=== PATIENT | male | born 1955 | race Caucasian/White ===

== ENCOUNTER 2019-04-26 10:10 | Inpatient (IN) | payer OTHER ==
[2019-04-26] MEDS ORDERED: SODIUM CHLORIDE 0.9% 1,000 ML IV STA (10:18)
[2019-04-26] MEDS ORDERED: FAMOTIDINE 20 MG/2 ML VIAL IV STA (10:18)
[2019-04-26 10:34] LABS: Basophils % (A) 1 %; Eosinophils # (A) 0.1 k/uL (0-0.7); Eosinophils % (A) 2 %; HCT 45.7 % (39.0-53.0); HGB 14.5 gm/dL (13.0-17.5); Lymphocytes # (A) 1.2 k/uL (1.0-4.8); Lymphocytes % (A) 19 %; MCH 30.8 pg (25.0-35.0); MCHC 31.7 g/dL (31.0-37.0); MCV 97.2 fL (80.0-100.0); Mean Platelet Volume 7.4; Monocytes # (A) 0.3 k/uL (0-1.0); Monocytes % (A) 5 %; Neutrophils # (A) 4.9 k/uL (1.3-7.7); Neutrophils % (A) 73 %; Platelet Count 233 k/uL (150-450); RDW 13.3 % (11.5-15.5); WBC 6.7 k/uL (3.8-10.6)
[2019-04-26 10:45] LABS: ALT 20 U/L (4-49); AST 31 U/L (17-59); African American GFR (CKD) >90 (>60 ml/min/1.73 sqM); Albumin 3.1 g/dL (3.5-5.0); Alkaline Phosphatase 52 U/L (38-126); Anion Gap 3 mmol/L; Blood Urea Nitrogen 14 mg/dL (9-20); Calcium 7.8 mg/dL (8.4-10.2); Carbon Dioxide 28 mmol/L (22-30); Chloride 104 mmol/L (98-107); Glucose 117 mg/dL (74-99); Magnesium 1.9 mg/dL (1.6-2.3); Non-African American GFR(CKD) >90 (>60 ml/min/1.73 sqM); Potassium 4.2 mmol/L (3.5-5.1); Sodium 135 mmol/L (137-145); Total Bilirubin 1.1 mg/dL (0.2-1.3); Total Protein 5.8 g/dL (6.3-8.2)
--- NOTE | 2019-04-26 10:46 | ED ---
General Adult HPI - General Chief complaint: Shortness of Breath Stated complaint: shortness of breath Time Seen by Provider: 04/26/19 10:12 Source: patient, RN notes reviewed Mode of arrival: EMS Limitations: no limitations - History of Present Illness Initial comments: Patient is a pleasant 63-year-old male presenting to the emergency Department with complaints of difficulty in breathing. Symptoms have progressed over the past year and a half, especially this past week. Patient stopped smoking yesterday. Patient used to smoke 3 packs a day however currently smokes less than one pack per day. No significant cough. No leg pain or leg swelling. No chest pain. Patient does get occasional epigastric discomfort over the past several weeks, none at this time. - Related Data Home Medications Medication Instructions Recorded Confirmed Albuterol Inhaler [Ventolin Hfa 2 puff INHALATION RT-Q4H 04/26/19 04/26/19 Inhaler] Buprenorphine HCl [Subutex] 8 mg SL BID 04/26/19 04/26/19 Caffeine Tablets 200 mg PO Q4H 04/26/19 04/26/19 Fluticasone/Vilanterol [Breo 1 puff INHALATION RT-DAILY 04/26/19 04/26/19 Ellipta 200-25 Mcg INH] Pseudoephedrine HCl [Sudafed] 30 mg PO Q4HR PRN 04/26/19 04/26/19 Allergies Allergy/AdvReac Type Severity Reaction Status Date / Time No Known Allergies Allergy Verified 04/26/19 11:14 Review of Systems ROS Statement: Those systems with pertinent positive or pertinent negative responses have been documented in the HPI. ROS Other: All systems not noted in ROS Statement are negative. Constitutional: Denies: fever Eyes: Denies: eye pain ENT: Denies: ear pain Respiratory: Reports: dyspnea. Denies: cough Cardiovascular: Denies: chest pain Endocrine: Reports: fatigue Gastrointestinal: Reports: as per HPI Genitourinary: Denies: dysuria Musculoskeletal: Denies: arthralgia Skin: Denies: lesions Neurological: Denies: weakness Past Medical History Past Medical History: COPD History of Any Multi-Drug Resistant Organisms: None Reported Past Surgical History: No Surgical Hx Reported Additional Past Surgical History / Comment(s): surgery on arm to remove lump build up of ecoli approx 1994. Past Psychological History: Depression Smoking Status: Current every day smoker Past Alcohol Use History: Daily Past Drug Use History: None Reported General Exam Limitations: no limitations General appearance: alert, in no apparent distress Head exam: Present: normocephalic Eye exam: Present: normal appearance, PERRL ENT exam: Present: normal oropharynx Neck exam: Present: normal inspection Respiratory exam: Present: wheezes, decreased breath sounds Cardiovascular Exam: Present: regular rate, normal rhythm GI/Abdominal exam: Present: soft. Absent: tenderness Extremities exam: Present: normal inspection Neurological exam: Present: alert Psychiatric exam: Present: normal affect, normal mood Skin exam: Present: normal color Course Vital Signs 04/26/19 10:27 Pulse Rate 84 Respiratory 24 Rate Blood Pressure 182/111 O2 Sat by Pulse 97 Oximetry EKG Findings - EKG Comments: EKG Findings:: Normal sinus rhythm 86. IA 116. QRS 90. QT 384. QTC 459. Left axis. Left anterior fascicular block. No acute ST change. Medical Decision Making - Medical Decision Making Patient reevaluated and somewhat improved. Blood pressure remains high. Patient will be provided medication for this. Patient and family updated on results and plan. Case was discussed in detail with Dr. Arreola, who will admit covering for hospital call. He does request pulmonary consult with Dr. Morales - Lab Data Result diagrams: 04/26/19 10:23 04/26/19 10:23 Lab Results 04/26/19 04/26/19 04/26/19 Range/Units 10:23 10:23 10:23 WBC 6.7 (3.8-10.6) k/uL RBC 4.70 (4.30-5.90) m/uL Hgb 14.5 (13.0-17.5) gm/dL Hct 45.7 (39.0-53.0) % MCV 97.2 (80.0-100.0) fL MCH 30.8 (25.0-35.0) pg MCHC 31.7 (31.0-37.0) g/dL RDW 13.3 (11.5-15.5) % Plt Count 233 (150-450) k/uL Neutrophils % 73 % Lymphocytes % 19 % Monocytes % 5 % Eosinophils % 2 % Basophils % 1 % Neutrophils # 4.9 (1.3-7.7) k/uL Lymphocytes # 1.2 (1.0-4.8) k/uL Monocytes # 0.3 (0-1.0) k/uL Eosinophils # 0.1 (0-0.7) k/uL Basophils # 0.0 (0-0.2) k/uL PT (9.0-12.0) sec INR (<1.2) APTT (22.0-30.0) sec Sodium 135 L (137-145) mmol/L Potassium 4.2 (3.5-5.1) mmol/L Chloride 104 (98-107) mmol/L Carbon Dioxide 28 (22-30) mmol/L Anion Gap 3 mmol/L BUN 14 (9-20) mg/dL Creatinine 0.51 L (0.66-1.25) mg/dL Est GFR (CKD-EPI)AfAm >90 (>60 ml/min/1.73 sqM) Est GFR (CKD-EPI)NonAf >90 (>60 ml/min/1.73 sqM) Glucose 117 H (74-99) mg/dL Plasma Lactic Acid Suraj 1.1 (0.7-2.0) mmol/L Calcium 7.8 L (8.4-10.2) mg/dL Magnesium 1.9 (1.6-2.3) mg/dL Total Bilirubin 1.1 (0.2-1.3) mg/dL AST 31 (17-59) U/L ALT 20 (4-49) U/L Alkaline Phosphatase 52 (38-126) U/L NT-Pro-B Natriuret Pep pg/mL Total Protein 5.8 L (6.3-8.2) g/dL Albumin 3.1 L (3.5-5.0) g/dL 04/26/19 04/26/19 Range/Units 10:23 10:23 WBC (3.8-10.6) k/uL RBC (4.30-5.90) m/uL Hgb (13.0-17.5) gm/dL Hct (39.0-53.0) % MCV (80.0-100.0) fL MCH (25.0-35.0) pg MCHC (31.0-37.0) g/dL RDW (11.5-15.5) % Plt Count (150-450) k/uL Neutrophils % % Lymphocytes % % Monocytes % % Eosinophils % % Basophils % % Neutrophils # (1.3-7.7) k/uL Lymphocytes # (1.0-4.8) k/uL Monocytes # (0-1.0) k/uL Eosinophils # (0-0.7) k/uL Basophils # (0-0.2) k/uL PT 10.7 (9.0-12.0) sec INR 1.0 (<1.2) APTT 23.8 (22.0-30.0) sec Sodium (137-145) mmol/L Potassium (3.5-5.1) mmol/L Chloride (98-107) mmol/L Carbon Dioxide (22-30) mmol/L Anion Gap mmol/L BUN (9-20) mg/dL Creatinine (0.66-1.25) mg/dL Est GFR (CKD-EPI)AfAm (>60 ml/min/1.73 sqM) Est GFR (CKD-EPI)NonAf (>60 ml/min/1.73 sqM) Glucose (74-99) mg/dL Plasma Lactic Acid Suraj (0.7-2.0) mmol/L Calcium (8.4-10.2) mg/dL Magnesium (1.6-2.3) mg/dL Total Bilirubin (0.2-1.3) mg/dL AST (17-59) U/L ALT (4-49) U/L Alkaline Phosphatase (38-126) U/L NT-Pro-B Natriuret Pep 292 pg/mL Total Protein (6.3-8.2) g/dL Albumin (3.5-5.0) g/dL - Radiology Data Radiology results: image reviewed (Chest x-ray shows COPD) Disposition Clinical Impression: Acute exacerbation of chronic obstructive pulmonary disease, Hypertension Disposition: ADMITTED IP TO THIS HOSP Is patient prescribed a controlled substance at d/c from ED?: No Referrals: None,Stated [Primary Care Provider] - 1-2 days Decision Time: 11:45
[2019-04-26 10:50] LABS: Partial Thromboplastin Time 23.8 sec (22.0-30.0); Prothrombin Time 10.7 sec (9.0-12.0)
--- NOTE | 2019-04-26 11:02 | XR ---
EXAMINATION TYPE: XR chest 2V DATE OF EXAM: 04/26/2019 HISTORY: difficulty breathing. REFERENCE: NONE. FINDINGS: The lungs are overinflated. Heart size upper limits of normal. Lungs are clear. Pleural spa sofiya are clear. IMPRESSION: COPD.
--- NOTE | 2019-04-26 11:02 | XR ---
EXAMINATION TYPE: XR abdomen 1V , 2 VIEWS DATE OF EXAM ORDERED: 04/26/2019 HISTORY: Abdominal pain. COMPARISON: None. FINDINGS: Catheter tubing projects over the mid abdomen. Lung bases are clear. Within the abdomen, the abdominal gas pattern is within normal limits. There is no evidence of obstru ction or free air. No unusual calcifications are seen. There are degenerative changes in the spine. IMPRESSION: NO ACUTE INTRA-ABDOMINAL ABNORMALITY.
[2019-04-26] MEDS ORDERED: ENALAPRILAT 1.25 MG/ML 1 ML VIAL IVP STA (11:32)
[2019-04-26] MEDS ORDERED: ENALAPRILAT 1.25 MG/ML 1 ML VIAL IVP PRN (11:32)
[2019-04-26] MEDS ORDERED: methylPREDNISolone SOD SUCCI 125 MG/2 ML VIAL IV STA (11:46)
[2019-04-26] MEDS ORDERED: IPRATROPIUM-ALBUTEROL 3 ML NEB INHALATION PRN (11:46)
[2019-04-26] MEDS ORDERED: ONDANSETRON 4 MG/2 ML VIAL IVP STA (12:07)
[2019-04-26 12:10] LABS: Amylase 39 U/L (30-110)
[2019-04-26] MEDS: IPRATROPIUM-ALBUTEROL 3 ML NEB INHALATION SCH ×3 (12:10→19:39)
[2019-04-26] MEDS: SODIUM CHLORIDE 0.9% 1,000 ML IV SCH (12:11)
[2019-04-26] MEDS: amLODIPine 5 MG TAB PO SCH (12:14)
[2019-04-26] MEDS ORDERED: PSEUDOEPHEDRINE 30 MG TAB PO PRN (12:48)
--- NOTE | 2019-04-26 12:59 | US ---
EXAMINATION TYPE: US abdomen limited DATE OF EXAM: 04/26/2019 COMPARISON: NONE CLINICAL HISTORY: Pain, evaluate aorta and gallbladder. SOB, intermittent abdomen pain x 1 week EXAM MEASUREMENTS: Liver Length: 15.4 cm Gallbladder Wall: 0.2 cm CBD: 0.5 cm Right Kidney: 10.1 x 4.3 x 4.6 cm Pancreas: duct seen measuring 0.3cm Liver: wnl Gallbladder: wnl Evidence for sonographic Bowen's sign: no CBD: wnl Right Kidney: wnl Limited views of the pancreas are unremarkable. The liver is unremarkable. It is normal in size without biliary dilatation. The gallbladder is normal without cholelithiasis. The gallbladder wall measures 2 mm. This common hep atic duct measures 5 mm. The right kidney is normal. IMPRESSION: NORMAL RIGHT UPPER QUADRANT ULTRASOUND.
--- NOTE | 2019-04-26 13:00 | US ---
EXAMINATION TYPE: US duplex aorta DATE OF EXAM: 04/26/2019 COMPARISON: NONE CLINICAL HISTORY: pain. SOB, intermittent abdomen pain x 1 week EXAM MEASUREMENTS: Abdominal Aorta: Proximal: wnl at 2.2 x 2.4cm Mid: wnl at 1.7 x 1.9cm Distal: wnl at 1.9 x 2.0cm Right Iliac: wnl at 1.0 x 1.0cm Left Iliac: wnl at 1.0 x 1.2cm No AAA seen at this time. IMPRESSION: NO EVIDENCE OF AN AORTIC ANEURYSM AT THIS TIME.
[2019-04-26] MEDS: BUPRENORPHINE HCL 8 MG SUBLINGUAL SCH ×2 (14:32→22:33)
[2019-04-26] MEDS: LISINOPRIL 20 MG TAB PO SCH (14:44)
[2019-04-26 16:55] LABS: Glucose,Whole Blood 327 mg/dL (75-99)
[2019-04-26] MEDS: INSULIN ASPART (NovoLOG) 100 UNIT/ML VIAL SQ SCH ×2 (17:33→22:29)
[2019-04-26] MEDS: methylPREDNISolone SOD SUCCI 125 MG/2 ML VIAL IV SCH (17:33)
[2019-04-26] MEDS ORDERED: LORazepam 2 MG/ML INJ IV PRN ×3 (17:50)
[2019-04-26] MEDS: NICOTINE 21MG/24HR PATCH TRANSDERM SCH (18:30)
[2019-04-26] MEDS: THIAMINE 100 MG TAB PO SCH (18:30)
[2019-04-26 21:05] LABS: Glucose,Whole Blood 159 mg/dL (75-99)
[2019-04-26] MEDS: FAMOTIDINE 20 MG TAB PO SCH (22:29)
[2019-04-27] MEDS: SODIUM CHLORIDE 0.9% 1,000 ML IV SCH ×4 (00:47→20:27)
[2019-04-27] MEDS: methylPREDNISolone SOD SUCCI 125 MG/2 ML VIAL IV SCH ×5 (00:47→23:28)
--- NOTE | 2019-04-27 01:14 | P.CNPUL ---
History of Present Illness Consult date: 04/26/19 Reason for consult: dyspnea, cough Chief complaint: Shortness of breath History of present illness: This is a 63-year-old with past medical history of significant history of smoking smokes about 3 packs per day came into the hospital with increasing shortness of breath intermittent cough congestion not feeling well, chest x-ray looks like COPD Review of Systems All systems: negative Past Medical History Past Medical History: COPD History of Any Multi-Drug Resistant Organisms: None Reported Past Surgical History: No Surgical Hx Reported Additional Past Surgical History / Comment(s): surgery on arm to remove lump build up of ecoli approx 1994. 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 continues with suboxone. - Past Family History Father History Unknown: Yes Mother History Unknown: Yes Medications and Allergies Home Medications Medication Instructions Recorded Confirmed Type Albuterol Inhaler [Ventolin Hfa 2 puff INHALATION RT-Q4H 04/26/19 04/26/19 History Inhaler] Buprenorphine HCl [Subutex] 8 mg SL BID 04/26/19 04/26/19 History Caffeine Tablets 200 mg PO Q4H 04/26/19 04/26/19 History Fluticasone/Vilanterol [Breo 1 puff INHALATION RT-DAILY 04/26/19 04/26/19 History Ellipta 200-25 Mcg INH] Pseudoephedrine HCl [Sudafed] 30 mg PO Q4HR PRN 04/26/19 04/26/19 History Allergies Allergy/AdvReac Type Severity Reaction Status Date / Time No Known Allergies Allergy Verified 04/26/19 11:14 Physical Exam Vitals: Vital Signs Temp Pulse Pulse Resp BP BP Pulse Ox 04/26/19 19:50 92 04/26/19 19:40 95 97 04/26/19 16:20 88 04/26/19 16:09 84 04/26/19 14:06 97.5 F L 88 150/95 93 L 04/26/19 13:19 77 20 155/98 99 04/26/19 13:13 20 04/26/19 13:03 98.4 F 04/26/19 12:54 78 20 159/112 98 04/26/19 12:21 87 04/26/19 12:13 82 04/26/19 12:11 76 20 168/112 100 04/26/19 11:54 77 20 185/115 99 04/26/19 10:27 84 24 182/111 97 Intake and Output 04/26/19 04/26/19 04/27/19 14:59 22:59 06:59 Intake Total 240 Balance 240 Intake: Oral 240 Other: Weight 44.906 kg - Constitutional General appearance: average body habitus, cooperative, disheveled, morbidly obese - EENT Eyes: EOMI, PERRLA, normal appearance ENT: normal oropharynx Ears: bilateral: normal - Neck Carotids: bilateral: upstroke normal Thyroid: bilateral: normal size - Respiratory Respiratory: bilateral: diminished, wheezing, negative: dullness, rales, rhonchi - Cardiovascular Rhythm: regular Heart sounds: normal: S1, S2 - Gastrointestinal General gastrointestinal: soft - Integumentary Integumentary: normal - Neurologic Neurologic: CNII-XII intact - Musculoskeletal Musculoskeletal: gait normal, generalized weakness, strength equal bilaterally - Psychiatric Psychiatric: A&O x's 3, appropriate affect, intact judgment & insight Results - Laboratory Findings CBC and BMP: 04/26/19 10:23 04/26/19 10:23 PT/INR, D-dimer PT 10.7 sec (9.0-12.0) 04/26/19 10:23 INR 1.0 (<1.2) 04/26/19 10:23 Abnormal lab findings: Abnormal Labs 04/26/19 04/26/19 04/26/19 10:23 16:52 21:00 Sodium 135 L Creatinine 0.51 L Glucose 117 H POC Glucose (mg/dL) 327 H 159 H Calcium 7.8 L Total Protein 5.8 L Albumin 3.1 L - Diagnostic Findings Chest x-ray: report reviewed, image reviewed (Finding as noted above) Assessment and Plan Assessment: Acute COPD exacerbation History of extensive smoking and nicotine use Plan: Continue IV steroids Breathing treatments Smoking cessation and advice Further recommendations pending plan of care as per clinical response of the patient Time with Patient: Greater than 30
[2019-04-27] MEDS: ACETAMINOPHEN TAB 325 MG TAB PO PRN ×2 (02:02→20:27)
[2019-04-27 07:13] LABS: Glucose,Whole Blood 167 mg/dL (75-99)
[2019-04-27] MEDS: SYMBICORT 160-4.5 MCG INHALER INHALATION SCH ×2 (07:16→19:39)
[2019-04-27] MEDS: IPRATROPIUM-ALBUTEROL 3 ML NEB INHALATION SCH ×4 (07:16→19:39)
[2019-04-27] MEDS: BUPRENORPHINE HCL 8 MG SUBLINGUAL SCH ×2 (08:01→20:12)
[2019-04-27] MEDS: NICOTINE 21MG/24HR PATCH TRANSDERM SCH (08:03)
[2019-04-27] MEDS: INSULIN ASPART (NovoLOG) 100 UNIT/ML VIAL SQ SCH ×4 (08:03→20:09)
[2019-04-27] MEDS: THIAMINE 100 MG TAB PO SCH ×2 (08:03→17:36)
[2019-04-27] MEDS: LISINOPRIL 20 MG TAB PO SCH (08:03)
[2019-04-27] MEDS: FAMOTIDINE 20 MG TAB PO SCH ×2 (08:03→20:27)
[2019-04-27] MEDS: amLODIPine 5 MG TAB PO SCH (08:03)
[2019-04-27 11:55] LABS: Cholesterol 172 mg/dL (<200); HDL Cholesterol 86 mg/dL (40-60); LDL Cholesterol,Calculated 73 mg/dL (0-99); Triglycerides 67 mg/dL (<150)
[2019-04-27 11:55] LABS: Glucose,Whole Blood 168 mg/dL (75-99)
--- NOTE | 2019-04-27 13:05 | HP ---
HISTORY AND PHYSICAL CHIEF COMPLAINT: Difficulty breathing. HISTORY OF PRESENT ILLNESS: This is the first known admission for this 63-year-old white male who presents to the emergency room with extreme shortness of breath. It has been getting worse over the last year. He smokes 3 to 4 packs a day and stated that he stopped yesterday. He has had no cough, hemoptysis, chest pain, etc. He has otherwise been healthy. At home, uses albuterol, fluticasone, buprenorphine 8 mg b.i.d. REVIEW OF SYSTEMS: He has had no headaches, neurologic problems, hemoptysis, chest pain, heart disease, hypertension, palpitations, murmurs, rheumatic fever, syncope, orthopnea, PND, hematemesis, melena, hematochezia, jaundice, renal failure, dysuria, frequency, urgency, incontinence, diabetes, etc. Past medical history, family history and personal and social histories reveal he is not allergic to any medication. PHYSICAL EXAMINATION: Blood pressure is 182/111 with a pulse of 84, respiration 24. He is afebrile. GENERAL: He appeared to be very asthenic and very short of breath. Skin color is normal. Skin is warm, dry. Lymph nodes not enlarged. Head, ears, eyes, nose, mouth, and throat were normal. Neck veins were not distended. Carotids normal. Chest demonstrated increased AP diameter with very poor breath sounds and extensive rales and wheezing on inspiration and expiration and occasional rhonchi along with a productive cough. Cardiac exam demonstrates sinus tachycardia. The abdomen is flat, soft, nontender without any visceromegaly or masses. Bowel sounds are present. Extremities were found to be very cool and he had no palpable pulses in the lower extremities. Neurologically, he is intact. He is admitted to hospital with diagnoses. 1. Exacerbation of chronic obstructive pulmonary disease. 2. History of abdominal pain, etiology unknown. 3. Peripheral vascular occlusive disease. PLAN: 1. Bed rest. 2. IV fluids. 3. Updrafts. 4. IV inhaled steroids. 5. Pulmonology consult. 6. Vascular Surgery consult. SARATH / ROMAINE: [id number] /
[2019-04-27 14:28] VITALS: BMI 15.0
--- NOTE | 2019-04-27 16:42 | P.GSCN ---
History of Present Illness Consult date: 04/27/19 Reason for Consult: Peripheral vascular disease Requesting physician: Gerard Arreola History of present illness: This is 63-year-old gentleman who does not follow with a primary care physician on a regular basis. He is a past medical history significant for COPD, depression, chronic ongoing tobacco dependence and EtOH abuse. Recently, over the past 2-3 days the patient has been having complaints of progressive shortness of breath which has been getting worse over the past year. He also complaints of progressive weakness over the last week. The patient states that he smokes about a pack to a pack and a half of cigarettes per day although has not smoked at all over the weekend prior to presenting to the emergency department here at [facility]. He also reports that he has been getting frequent charley horses to his bilateral lower extremities. He denies any recent fever, chills, hemoptysis, cough, or chest pain. Subsequently, due to the patient's complaints of frequent charley horses a consult was placed to Dr. Oskar Hedrick from vascular surgery for further evaluation and treatment recommendations. Review of Systems A 14 point review of systems was completed and was negative except as mentioned in the HPI. Past Medical History Past Medical History: COPD History of Any Multi-Drug Resistant Organisms: None Reported Past Surgical History: No Surgical Hx Reported Additional Past Surgical History / Comment(s): surgery on arm to remove lump build up of ecoli approx 1994. 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 He admits to using unprescribed Adderall at times. continues with suboxone. - Past Family History Father Family Medical History: Myocardial Infarction ([place]) Mother Additional Family Medical History / Comment(s): History of permanent pacemaker placement, " of old age at 96 years old." Medications and Allergies Home Medications Medication Instructions Recorded Confirmed Type Albuterol Inhaler [Ventolin Hfa 2 puff INHALATION RT-Q4H 04/26/19 04/26/19 Hi story Inhaler] Buprenorphine HCl [Subutex] 8 mg SL BID 04/26/19 04/26/19 History Caffeine Tablets 200 mg PO Q4H 04/26/19 04/26/19 History Fluticasone/Vilanterol [Breo 1 puff INHALATION RT-DAILY 04/26/19 04/26/19 History Ellipta 200-25 Mcg INH] Pseudoephedrine HCl [Sudafed] 30 mg PO Q4HR PRN 04/26/19 04/26/19 History Allergies Allergy/AdvReac Type Severity Reaction Status Date / Time No Known Allergies Allergy Verified 04/26/19 11:14 Surgical - Exam Vital Signs Pulse Resp BP Pulse Ox 84 24 182/111 97 04/26/19 10:27 04/26/19 10:27 04/26/19 10:27 04/26/19 10:27 - General no distress, no pain, cachectic, chronically ill - Eyes PERRL, normal ocular movement - ENT normal pinna, normal nares, normal mucosa, no hearing loss, no congestion, poor snf, dentures (Partials upper and lower) - Respiratory Lung sounds with few expiratory wheezes scattered throughout. Diminished to his bilateral bases. Respirations are symmetrical and nonlabored. - Cardiovascular Regular rhythm and rate. S1 and S2 present, negative for S3, gallop or murmur. Peripheral pulses palpable. No edema present. - Abdomen Abdomen is soft, nontender and nondistended. Active bowel sounds present all 4 abdominal quadrants. No guarding or rigidity. No organomegaly appreciated. - Genitourinary Deferred - Rectum Deferred - Integumentary no rash, no growths, no abnormal pigmentation - Neurologic Cranial nerves II through XII intact. normal coordination, normal sensation - Musculoskeletal normal gait, normal posture - Psychiatric oriented to time, oriented to person, oriented to place, speech is normal, memory intact Results - Labs 04/26/19 10:23 04/26/19 10:23 Abnormal Lab Results - Last 24 Hours (Table) 04/26/19 04/26/19 04/26/19 Range/Units 10:23 16:52 21:00 Sodium 135 L (137-145) mmol/L Creatinine 0.51 L (0.66-1.25) mg/dL Glucose 117 H (74-99) mg/dL POC Glucose (mg/dL) 327 H 159 H (75-99) mg/dL Calcium 7.8 L (8.4-10.2) mg/dL Total Protein 5.8 L (6.3-8.2) g/dL Albumin 3.1 L (3.5-5.0) g/dL HDL Cholesterol 86 H (40-60) mg/dL 04/27/19 04/27/19 Range/Units 06:46 11:35 Sodium (137-145) mmol/L Creatinine (0.66-1.25) mg/dL Glucose (74-99) mg/dL POC Glucose (mg/dL) 167 H 168 H (75-99) mg/dL Calcium (8.4-10.2) mg/dL Total Protein (6.3-8.2) g/dL Albumin (3.5-5.0) g/dL HDL Cholesterol (40-60) mg/dL Diabetes panel 04/26/19 Range/Units 10:23 Sodium 135 L (137-145) mmol/L Potassium 4.2 (3.5-5.1) mmol/L Chloride 104 (98-107) mmol/L Carbon Dioxide 28 (22-30) mmol/L BUN 14 (9-20) mg/dL Creatinine 0.51 L (0.66-1.25) mg/dL Glucose 117 H (74-99) mg/dL Calcium 7.8 L (8.4-10.2) mg/dL AST 31 (17-59) U/L ALT 20 (4-49) U/L Alkaline Phosphatase 52 (38-126) U/L Total Protein 5.8 L (6.3-8.2) g/dL Albumin 3.1 L (3.5-5.0) g/dL Triglycerides 67 (<150) mg/dL HDL Cholesterol 86 H (40-60) mg/dL Calcium panel 04/26/19 Range/Units 10:23 Calcium 7.8 L (8.4-10.2) mg/dL Albumin 3.1 L (3.5-5.0) g/dL Pituitary panel 04/26/19 Range/Units 10:23 Sodium 135 L (137-145) mmol/L Potassium 4.2 (3.5-5.1) mmol/L Chloride 104 (98-107) mmol/L Carbon Dioxide 28 (22-30) mmol/L BUN 14 (9-20) mg/dL Creatinine 0.51 L (0.66-1.25) mg/dL Glucose 117 H (74-99) mg/dL Calcium 7.8 L (8.4-10.2) mg/dL Adrenal panel 04/26/19 Range/Units 10:23 Sodium 135 L (137-145) mmol/L Potassium 4.2 (3.5-5.1) mmol/L Chloride 104 (98-107) mmol/L Carbon Dioxide 28 (22-30) mmol/L BUN 14 (9-20) mg/dL Creatinine 0.51 L (0.66-1.25) mg/dL Glucose 117 H (74-99) mg/dL Calcium 7.8 L (8.4-10.2) mg/dL Total Bilirubin 1.1 (0.2-1.3) mg/dL AST 31 (17-59) U/L ALT 20 (4-49) U/L Alkaline Phosphatase 52 (38-126) U/L Total Protein 5.8 L (6.3-8.2) g/dL Albumin 3.1 L (3.5-5.0) g/dL Assessment and Plan Assessment: 1. Acute exacerbation of COPD 2. Acute ongoing chronic nicotine dependence 3. Bilateral lower extremity muscle cramps 4. Acute ongoing EtOH use 5. History of depression Plan: The patient was seen and examined at his bedside on the sixth floor medical surgical unit with Dr. Oskar Hedrick. His chart and diagnostics were reviewed. No surgical intervention is warranted at this time. He has palpable peripheral pulses to his bilateral lower extremities. Recommendations are for risk modification including quitting smoking which was discussed with the patient. Medical management recommendations per primary care service. Bronchodilator management per pulmonary medicine. Thank you for this consult and we will follow the patient on an as-needed basis. Time with Patient: Greater than 30
[2019-04-27 17:13] LABS: Glucose,Whole Blood 128 mg/dL (75-99)
--- NOTE | 2019-04-27 19:45 | CT ---
EXAMINATION TYPE: CT chest angio for PE DATE OF EXAM: 04/27/2019 COMPARISON: None HISTORY: CHEST PAIN CT DLP: 333 mGycm Automated exposure control for dose reduction was used. CONTRAST: Performed with IV Contrast, patient injected with 100 mL of Isovue 370. There are 3-D post processed images. Thoracic aorta is intact. There is no mediastinal adenopathy. There is no aneurysm or dissection. The re are filling defects in the lower lobe pulmonary arteries bilaterally. There are no hilar masses. H eart size is normal. Right ventricle has normal size. There are small bilateral pleural effusions with bilateral basilar atelectasis. The upper lung herrera are clear. The bony thorax is intact. IMPRESSION: Exam shows evidence of bilateral lower lobe pulmonary emboli. There is bilateral basilar mild infiltr ate and atelectasis with pleural effusions. Exam was discussed with medical staff on the floor at 7:45 PM.
[2019-04-27] MEDS ORDERED: HEPARIN SODIUM,PORCINE 10,000 UNIT/ML 1 ML VIAL IV ONE (19:49)
[2019-04-27 20:08] LABS: Glucose,Whole Blood 116 mg/dL (75-99)
[2019-04-27] MEDS: HEPARIN SOD,PORK IN 0.45% NACL 25,000 UNIT in 0.45% NACL 1 250ML.BAG IV SCH (20:26)
[2019-04-27 20:28] LABS: Hemoglobin A1C 6.1 % (4.0-6.0)
[2019-04-27 20:43] LABS: Basophils % (A) 0 %; Eosinophils % (A) 0 %; HCT 45.4 % (39.0-53.0); HGB 14.4 gm/dL (13.0-17.5); Lymphocytes # (A) 0.3 k/uL (1.0-4.8); Lymphocytes % (A) 2 %; MCH 30.5 pg (25.0-35.0); MCHC 31.8 g/dL (31.0-37.0); MCV 96.1 fL (80.0-100.0); Mean Platelet Volume 8.1; Monocytes # (A) 0.6 k/uL (0-1.0); Monocytes % (A) 3 %; Neutrophils # (A) 17.8 k/uL (1.3-7.7); Neutrophils % (A) 95 %; Platelet Count 254 k/uL (150-450); RBC 4.72 m/uL (4.30-5.90); RDW 13.4 % (11.5-15.5); WBC 18.8 k/uL (3.8-10.6)
[2019-04-27 20:52] LABS: INR 0.9 (<1.2); Prothrombin Time 9.9 sec (9.0-12.0)
[2019-04-27 20:58] LABS: Partial Thromboplastin Time 21.5 sec (22.0-30.0)
--- NOTE | 2019-04-28 00:34 | PN ---
PROGRESS NOTE DATE OF SERVICE: April 27, 2019. He has been hemodynamically stable. He is complaining of right-sided pleuritic chest pain. PHYSICAL EXAMINATION: His respiratory rate is 18, pulse rate 108, temperature 98, blood pressure 149/87, O2 saturation on room air is 94%. HEENT: Unremarkable. Chest reveals diminished breath sounds bilaterally with mild prolonged exhalation. Cardiovascular system with an S1, S2. Abdomen is soft. There is no pedal edema. IMPRESSION: At this time: 1. Chronic obstructive pulmonary disease with acute exacerbation. 2. Possible peripheral vascular disease. 3. Right-sided pleuritic chest pain, etiology which is unclear for which we should check a CT scan of the chest with contrast to make sure we are not dealing with pulmonary embolism versus other etiologies. Depending on how he does, we should make further changes to his care. MMODL / IJN: [id number] /
[2019-04-28] MEDS: HEPARIN SODIUM,PORCINE 5,000 UNIT/ML 1 ML VIAL IV PRN ×3 (02:28→17:27)
[2019-04-28] MEDS: methylPREDNISolone SOD SUCCI 125 MG/2 ML VIAL IV SCH ×4 (06:04→22:38)
[2019-04-28] MEDS: IPRATROPIUM-ALBUTEROL 3 ML NEB INHALATION SCH ×4 (07:01→20:55)
[2019-04-28] MEDS: SYMBICORT 160-4.5 MCG INHALER INHALATION SCH (07:02)
[2019-04-28 07:18] LABS: Glucose,Whole Blood 205 mg/dL (75-99)
[2019-04-28] MEDS: INSULIN ASPART (NovoLOG) 100 UNIT/ML VIAL SQ SCH ×4 (07:38→20:49)
[2019-04-28] MEDS: LISINOPRIL 20 MG TAB PO SCH (07:38)
[2019-04-28] MEDS: NICOTINE 21MG/24HR PATCH TRANSDERM SCH (07:38)
[2019-04-28] MEDS: THIAMINE 100 MG TAB PO SCH ×2 (07:39→16:40)
[2019-04-28] MEDS: FAMOTIDINE 20 MG TAB PO SCH ×2 (07:39→20:22)
[2019-04-28] MEDS: amLODIPine 5 MG TAB PO SCH (07:39)
[2019-04-28] MEDS: BUPRENORPHINE HCL 8 MG SUBLINGUAL SCH ×2 (07:40→20:09)
[2019-04-28 09:00] LABS: Basophils % (A) 0 %; Eosinophils # (A) 0.1 k/uL (0-0.7); Eosinophils % (A) 0 %; HCT 46.5 % (39.0-53.0); HGB 14.4 gm/dL (13.0-17.5); Lymphocytes # (A) 0.4 k/uL (1.0-4.8); Lymphocytes % (A) 2 %; MCH 30.1 pg (25.0-35.0); MCHC 30.9 g/dL (31.0-37.0); MCV 97.5 fL (80.0-100.0); Monocytes # (A) 0.4 k/uL (0-1.0); Monocytes % (A) 2 %; Neutrophils # (A) 18.7 k/uL (1.3-7.7); Neutrophils % (A) 95 %; Platelet Count 276 k/uL (150-450); RBC 4.77 m/uL (4.30-5.90); RDW 13.4 % (11.5-15.5); WBC 19.6 k/uL (3.8-10.6)
[2019-04-28] MEDS: ACETAMINOPHEN TAB 325 MG TAB PO PRN (09:56)
[2019-04-28 11:14] LABS: African American GFR (CKD) >90 (>60 ml/min/1.73 sqM); Blood Urea Nitrogen 13 mg/dL (9-20); Non-African American GFR(CKD) >90 (>60 ml/min/1.73 sqM)
[2019-04-28 11:57] LABS: Glucose,Whole Blood 292 mg/dL (75-99)
--- NOTE | 2019-04-28 13:03 | PN ---
PROGRESS NOTE DATE OF SERVICE: 04/28/2019 Patient is a 63-year-old male who is seen sitting up in bed, is awake, alert. Continues to experience shortness of breath. Patient did describe increased abdominal pain yesterday when he was trying to lay flat, getting imaging done, CT of the chest, to the degree that he said he cried out in pain, did finally get comfortable. Denies any pain at this time. CT of the chest did show bilateral PEs. The patient is hemodynamically stable, afebrile, in no acute distress. ON PHYSICAL EXAM: VITAL SIGNS: Temp 98.8, heart rate is 80, respiratory rate is 16, blood pressure is 145/84, O2 sats 94% on room air. HEENT. Head is normocephalic, atraumatic. Neck is supple. Trachea is midline. LUNGS: With decreased breath sounds, more so on the right than the left with prolonged expiratory phase. HEART: S1, S2 are heard, intermittently tachycardic. ABDOMEN: Soft. Bowel sounds are positive. EXTREMITIES: With no edema. NEUROLOGIC: Patient is awake, alert, oriented. LABS: White count 19.6, hemoglobin 14.4, hematocrit 46.5 with 276,000 platelets. PTT is 29.5, BUN is 13, creatinine is 0.47. Glucose is 292. IMAGING: CTA of the chest done last night shows evidence of bilateral lower lobe pulmonary emboli and bilateral basilar mild infiltrate and atelectasis with pleural effusions. IMPRESSION: 1. Bilateral lower lobe pulmonary emboli. 2. Bilateral basilar mild infiltrate with atelectasis and pleural effusion. 3. Chronic obstructive pulmonary disease with acute exacerbation. 4. Possible peripheral vascular disease. PLAN: The patient has been placed on a heparin drip. Will require anticoagulation. Continue bronchodilators and aerosol steroids. Continue the IV Solu-Medrol. Continue GI and patient is covered with DVT prophylaxis with the heparin. Recommend Coumadin for anticoagulation. Smoking cessation is highly recommended and the patient was counseled on the same. We will consider possibly checking lower extremity Dopplers as to etiology of the PEs and follow patient closely with you making further changes as necessary. MMODL / IJN: [id number] /
--- NOTE | 2019-04-28 13:39 | PN ---
PROGRESS NOTE CHIEF COMPLAINT: Exacerbation of COPD and hypertension with elevated blood sugars. HISTORY OF PRESENT ILLNESS: This gentleman is breathing a little bit better. It turns out that he has bilateral pulmonary emboli on a CTA. He is not having any swelling or discomfort in either leg. PHYSICAL EXAMINATION: Breath sounds are diminished throughout with scattered rales and rhonchi and expiratory wheezing. His cardiac exam is normal. His abdomen is flat, soft. He is nontender. IMPRESSION: 1. Exacerbation of chronic obstructive pulmonary disease. 2. Pulmonary emboli. 3. History of upper abdominal pain. 4. Rule out neoplasia. PLAN: 1. Continue with current treatment program along with anticoagulation. 2. CT of the abdomen and pelvis. 3. CA 19-9. MMODL / IJN: [id number] /
[2019-04-28] MEDS: SODIUM CHLORIDE 0.9% 1,000 ML IV SCH ×2 (14:10→22:38)
--- NOTE | 2019-04-28 14:30 | PN ---
PROGRESS NOTE 04/27/2019 CHIEF COMPLAINT: Difficulty breathing, upper abdominal pain, and poor circulation. HISTORY OF PRESENT ILLNESS: This gentleman is breathing is slightly improved, but he is still very dyspneic is. He still has inspiratory and expiratory wheezing. His abdominal pain has been present for over a year. He has no other related symptoms. He does have a little discomfort in the back. PHYSICAL EXAMINATION: Breath sounds are extremely poor throughout due to his emphysema. There are scattered rales, rhonchi and wheezing on inspiration and expiration. Abdomen is flat, soft, nontender. Extremities demonstrate what seems to be poor circulation in both lower legs. IMPRESSION: 1. Exacerbation of chronic obstructive pulmonary disease. 2. Upper abdominal pain. 3. PVOD. PLAN: 1. Consult with Vascular Surgery. 2. Continue pulmonary treatment. 3. CTA is to be done today. SARATH / ROMAINE: [id number] /
[2019-04-28] MEDS: IOPAMIDOL CONTRAST (ORAL USE) VIAL PO PRN ×2 (15:28→16:40)
--- NOTE | 2019-04-28 15:38 | US ---
EXAMINATION TYPE: US venous doppler duplex LE BI DATE OF EXAM: 04/28/2019 12:50 PM COMPARISON: NONE CLINICAL HISTORY: 63-year-old male bilateral pulmonary emboli. PE SIDE PERFORMED: Bilateral TECHNIQUE: The lower extremity deep venous system is examined utilizing real time linear array sonog morgan with graded compression, doppler sonography and color-flow sonography. FINDINGS: VESSELS IMAGED: External Iliac Vein (EIV) Common Femoral Vein Deep Femoral Vein Greater Saphenous Vein * Femoral Vein Popliteal Vein Small Saphenous Vein * Proximal Calf Veins (* superficial vessels) Right Leg: Negative for DVT Left Leg: Negative for DVT IMPRESSION No evidence for DVT within the bilateral lower extremities imaged from the groin to the upper calves.
[2019-04-28 17:11] LABS: Glucose,Whole Blood 232 mg/dL (75-99)
--- NOTE | 2019-04-28 17:21 | CT ---
EXAMINATION TYPE: CT abdomen pelvis w con DATE OF EXAM: 04/28/2019 COMPARISON: None HISTORY: Lower back pain CT DLP: 340 mGycm Automated exposure control for dose reduction was used. CONTRAST: Performed with IV Contrast, patient injected with 100 mL of Isovue 300. Multiple axial sections were obtained from the diaphragm to the floor the pelvis with oral and intrav enous contrast. There are bilateral pleural effusions. There is bilateral basilar atelectasis. There is no pericardia l effusion. Liver shows no focal defect. Gallbladder is somewhat contracted. Stomach is intact. Spleen appears no rmal. There is no evidence of pancreatic mass. There is no adrenal mass. Kidneys show satisfactory contrast opacification. There is no hydronephrosi s. Delayed images show normal renal excretion. There is no retroperitoneal adenopathy. Ureters are no t dilated. Bladder distends smoothly. There is no inguinal hernia. There is no evidence of a pelvic mass. There are spondylotic changes in the lumbar spine. There is vacuum disc at L5-S1. There is 15% anteri or wedging of L1 vertebra. There is 25% wedging of T11 vertebra. I see no sign of mesenteric edema. There is no bowel obstruction. There is no ascites. There is no si gn of free air. There is increased subcutaneous density in the abdomen that could relate to anasarca. The bony pelvis appears intact. There is some hypertrophic mild osteoarthritis in the hip joint. IMPRESSION: Bilateral pleural effusions and basilar atelectasis. No acute abnormality within the abdomen pelvis. Subcutaneous edema around the abdomen could relate to anasarca.
[2019-04-28] MEDS: HEPARIN SOD,PORK IN 0.45% NACL 25,000 UNIT in 0.45% NACL 1 250ML.BAG IV SCH (19:54)
[2019-04-28 20:43] LABS: Glucose,Whole Blood 124 mg/dL (75-99)
[2019-04-29] MEDS: methylPREDNISolone SOD SUCCI 125 MG/2 ML VIAL IV SCH ×2 (05:22→11:18)
[2019-04-29] MEDS: LISINOPRIL 20 MG TAB PO SCH (07:11)
[2019-04-29] MEDS: THIAMINE 100 MG TAB PO SCH (07:11)
[2019-04-29] MEDS: FAMOTIDINE 20 MG TAB PO SCH (07:11)
[2019-04-29] MEDS: amLODIPine 5 MG TAB PO SCH (07:12)
[2019-04-29] MEDS: BUPRENORPHINE HCL 8 MG SUBLINGUAL SCH (07:13)
[2019-04-29] MEDS: INSULIN ASPART (NovoLOG) 100 UNIT/ML VIAL SQ SCH ×2 (07:17→12:10)
[2019-04-29] MEDS: NICOTINE 21MG/24HR PATCH TRANSDERM SCH (07:17)
[2019-04-29 07:21] LABS: Glucose,Whole Blood 102 mg/dL (75-99)
[2019-04-29] MEDS: IPRATROPIUM-ALBUTEROL 3 ML NEB INHALATION SCH ×2 (07:35→11:04)
[2019-04-29 07:38] VITALS: PULSE 80
[2019-04-29 10:40] LABS: Basophils % (A) 0 %; Eosinophils % (A) 0 %; HGB 13.7 gm/dL (13.0-17.5); Lymphocytes # (A) 0.3 k/uL (1.0-4.8); Lymphocytes % (A) 2 %; MCH 30.5 pg (25.0-35.0); MCHC 31.2 g/dL (31.0-37.0); MCV 97.8 fL (80.0-100.0); Mean Platelet Volume 8.8; Monocytes # (A) 0.8 k/uL (0-1.0); Monocytes % (A) 4 %; Neutrophils # (A) 18.8 k/uL (1.3-7.7); Neutrophils % (A) 94 %; Platelet Count 266 k/uL (150-450); RDW 13.5 % (11.5-15.5)
[2019-04-29] MEDS: SODIUM CHLORIDE 0.9% 1,000 ML IV SCH (11:09)
[2019-04-29 12:06] LABS: Glucose,Whole Blood 131 mg/dL (75-99)
--- NOTE | 2019-04-29 14:08 | PN ---
PROGRESS NOTE The patient was seen on 04/29/2019. The patient has been hemodynamically stable. He complains of mild shortness of breath today. On physical examination, respiratory rate of 18, pulse rate 81, temperature 98, O2 saturation on room air 95%. HEENT: Unremarkable. Chest reveals decreased breath sounds. Cardiovascular system reveals an S1, S2. Abdomen is soft. There is no edema. IMPRESSION: 1. Pulmonary embolism. 2. Continue IV heparin and optimize Coumadin. 3. Chronic obstructive pulmonary disease with acute exacerbation. Continue current medications, heparin and Coumadin. He will require at least 6 months of anticoagulation. He was counseled regarding his condition and this approach. MMODL / IJN: [id number] /
[2019-04-29 14:11] VITALS: BP 164/82; RESP 16; TEMP 98.9
[2019-04-29] MEDS ORDERED: WARFARIN 5 MG TAB PO SCH (18:00)
--- NOTE | 2019-04-29 22:41 | DS ---
DISCHARGE SUMMARY CHIEF COMPLAINT: Difficulty breathing and hypertension. HISTORY OF PRESENT ILLNESS AND PHYSICAL EXAMINATION: Details of this man's history and physical can be found in the initial workup. LABORATORY STUDIES: While he was in the hospital he had laboratory studies, details of which can be found in the laboratory section of his chart. COURSE IN THE HOSPITAL: After admission he was placed on bedrest and started on intravenous fluids, IV and inhaled steroids. Subsequently he underwent a CT angiogram and was found to have bilateral pulmonary emboli. He had no swelling in either leg and no obvious source. He had been having upper abdominal pain for a year or two, and a CT was ordered as well as a CA19-9 and they were both normal. He was doing well it was felt that he could be discharged on April 29. He will go home on a regular diet and activity and be on Coumadin 5 mg once a day and he will follow up in the office in a few days. He also will be given a Medrol Dosepak and will provide other means of managing his COPD once he is an outpatient. He does not have insurance, which will complicate matters, but Medicaid has been applied for. FINAL DIAGNOSES: 1. Exacerbation of chronic obstructive pulmonary disease. 2. Upper abdominal pain, etiology undetermined. 3. Pulmonary emboli. OPERATIONS: None. CONSULTATION: Pulmonology. He is improved. MMODL / IJN: [id number] /
== END 2019-04-29 13:52 | disposition home or self-care (01) | DRG 176 ==
LOC: EC 10:10 → 6NMEDSUR 12:00 → OBSVTOIN 04-28 08:49
PROVIDERS: ADMIT Family Medicine; ATTEND Family Medicine
DX: I26.99 Other pulmonary embolism without acute cor pulmonale (principal); J44.1 Chronic obstructive pulmonary disease with (acute) exacerbation; J90 Pleural effusion, not elsewhere classified; J98.11 Atelectasis; F17.210 Nicotine dependence, cigarettes, uncomplicated; I10 Essential (primary) hypertension; I73.9 Peripheral vascular disease, unspecified; F10.10 Alcohol abuse, uncomplicated; F32.9 Major depressive disorder, single episode, unspecified; R10.10 Upper abdominal pain, unspecified; R25.2 Cramp and spasm; R73.9 Hyperglycemia, unspecified; Z79.899 Other long term (current) drug therapy; Z82.49 Family history of ischemic heart disease and other diseases of the circulatory system
CPT/HCPCS: 36415; 71046; 71275; 74018; 74177; 76705; 80053; 80061; 82150; 82565; 83036; 83605; 83690; 83735; 83880; 84520; 85025; 85610; 85730; 86301; 93005; 93970; 93979; 94640; 94760; 96361; 96374; 96375; 99285

== ENCOUNTER 2020-03-03 13:59 | Emergency (ER) | payer OTHER ==
[2020-03-03 14:06] VITALS: TEMP 98.4
[2020-03-03] MEDS ORDERED: SODIUM CHLORIDE 0.9% 500 ML 500 ML IV STA (14:13)
--- NOTE | 2020-03-03 15:03 | ED ---
General Adult HPI - General Chief complaint: Upper Respiratory Infection Stated complaint: SOB Time Seen by Provider: 03/03/20 14:08 Source: patient Mode of arrival: wheelchair Limitations: no limitations - History of Present Illness Initial comments: 64-year-old male with history of oxygen dependent COPD, hypertension, chronic pulmonary emboli with long-term eliquis presenting to the emergency department with a chief complaint of shortness of breath. Patient states on February 25 he was admitted to [facility] after fall and he was found to have a pneumonia. Patient states he was in the hospital for IV antibiotics for 4 days then discharged on March 01, 2 days ago. Patient states he was discharged with azithromycin tablets and prednisone along with a Lidoderm patch. Patient states due to difficulties with his insurance and his financial situation, he cannot afford the azithromycin and is not taking any medication. States he was able to obtain the prednisone but is not taking any medication. He does report continuing to smoke at home about 6 cigarettes per day. Patient states he has been feeling weaker than usual any shortness of breath is not improving. Denies any night sweats or chills. States he has been sleeping most of the time. He denies any chest pain. Patient also reports poor circulation to his hands and fingers which has been ongoing for many years. - Related Data Home Medications Medication Instructions Recorded Confirmed Albuterol Inhaler [Ventolin Hfa 2 puff INHALATION RT-QID PRN 03/03/20 03/03/20 Inhaler] Apixaban [Eliquis] 5 mg PO BID 03/03/20 03/03/20 Budesonide [Pulmicort] 0.5 mg INHALATION RT-BID 03/03/20 03/03/20 Fluticasone Propionate [Flovent 2 puff INHALATION RT-BID 03/03/20 03/03/20 Hfa 220 mcg] Montelukast [Singulair] 10 mg PO HS 03/03/20 03/03/20 amLODIPine [Norvasc] 2.5 mg PO BID 03/03/20 03/03/20 buPROPion HCL [Wellbutrin XL] 300 mg PO DAILY 03/03/20 03/03/20 buprenorphine HCL [Subutex] 8 mg SL BID 03/03/20 03/03/20 lisinopriL [Zestril] 20 mg PO DAILY 03/03/20 03/03/20 Previous Rx's Medication Instructions Recorded Ipratropium-Albuterol Nebulize 3 ml INHALATION RT-QID #120 ml 04/29/19 [Duoneb 0.5 mg-3 mg/3 ml Soln] Azithromycin [Zithromax Z-pack (6 0 mg PO DIRECTED #1 pack 03/03/20 tabs)] Ondansetron Odt [Zofran Odt] 4 mg PO Q8HR PRN #14 tab 03/03/20 Allergies Allergy/AdvReac Type Severity Reaction Status Date / Time No Known Allergies Allergy Verified 03/03/20 16:02 Review of Systems ROS Statement: Those systems with pertinent positive or pertinent negative responses have been documented in the HPI. ROS Other: All systems not noted in ROS Statement are negative. Past Medical History Past Medical History: COPD History of Any Multi-Drug Resistant Organisms: None Reported Past Surgical History: No Surgical Hx Reported Additional Past Surgical History / Comment(s): surgery on arm to remove lump build up of ecoli approx 1994. Past Anesthesia/Blood Transfusion Reactions: No Reported Reaction Past Psychological History: Depression Smoking Status: Current every day smoker Past Alcohol Use History: Daily Past Drug Use History: Prescription Drug Abuse - Past Family History Father History Unknown: Yes Family Medical History: Myocardial Infarction ([place]) Mother History Unknown: Yes Additional Family Medical History / Comment(s): History of permanent pacemaker p lacement, " of old age at 96 years old." General Exam Limitations: no limitations General appearance: alert, in no apparent distress Head exam: Present: atraumatic, normocephalic, normal inspection Eye exam: Present: normal appearance, PERRL, EOMI Pupils: Present: normal accommodation ENT exam: Present: normal exam, normal oropharynx, mucous membranes moist, TM's normal bilaterally, normal external ear exam Neck exam: Present: normal inspection, full ROM. Absent: tenderness, meningismus, lymphadenopathy, thyromegaly Respiratory exam: Present: normal lung sounds bilaterally. Absent: respiratory distress, wheezes, rales Cardiovascular Exam: Present: regular rate, normal rhythm, normal heart sounds. Absent: diastolic murmur GI/Abdominal exam: Present: soft. Absent: distended, tenderness, guarding, rebound Extremities exam: Present: normal inspection, full ROM, normal capillary refill. Absent: tenderness, pedal edema, calf tenderness Back exam: Present: normal inspection, full ROM. Absent: tenderness, CVA tenderness (R), CVA tenderness (L), muscle spasm, paraspinal tenderness, vertebral tenderness Neurological exam: Present: alert, oriented X3, normal gait Psychiatric exam: Present: normal affect, normal mood Skin exam: Present: warm, dry, intact, normal color Course Vital Signs 03/03/20 03/03/20 03/03/20 14:00 15:12 16:23 Temperature 98.4 F Pulse Rate 95 92 Respiratory 18 18 16 Rate Blood Pressure 160/113 145/100 O2 Sat by Pulse 100 98 Oximetry - Reevaluation(s) Reevaluation #1: 03/03/20 16:08 Medical records obtained and reviewed EKG Findings - EKG Comments: EKG Findings:: Sinus tachycardia, left axis deviation. Ventricular rate 101, TN 116, QRS 80, QTC 446. Medical Decision Making - Medical Decision Making 64-year-old male with history of oxygen dependent COPD, hypertension, chronic pulmonary emboli with long-term eliquis presenting to the emergency department with a chief complaint of shortness of breath. I obtained the medical chart from [facility] where the patient was on Rocephin and azithromycin and vancomycin. He was found to have gram-positive pathogens and a blood culture. He was initially on vancomycin but was later discontinued. Patient also had a cardiac echo performed to rule out any valvular pathologies. This was unremarkable. Patient also had a CT chest without contrast performed which revealed emphysema, pulmonary infiltrates mostly in left lung. He also appeared to have thoracic multiple compression fractures which appeared to be unchanged. CBC reveals mild leukocytosis of 14 K which is improved compared to the 17 K that was obtained from [facility]. Patient did have an elevated d-dimer, although this was expected secondary to the chronic emboli. Patient is on eliquis for it. CMP reveals mild hyponatremia. Slight increase in carbon dioxide Suspect is secondary to COPD. Slight elevation of BUN, patient was given IV fluids. Coags within normal limits. Initial troponins are negative. Covid and influenza negative. Patient does not have any chest pain. I did give the patient a prescription of azithromycin. He already obtained the prednisone. Vitals are within normal limits. Patient is not in any respiratory distress. Lungs are clear to auscultation. Patient already uses oxygen at home. Patient was advised to follow with his primary care physician. Patient and daughter feel comfortable being discharged. Return parameters were thoroughly discussed with patient is an attending agreeable. Case discussed with physician. - Lab Data Result diagrams: 03/03/20 15:06 03/03/20 15:06 Lab Results 03/03/20 03/03/20 03/03/20 Range/Units 15:06 15:06 15:06 WBC 14.0 H (3.8-10.6) k/uL RBC 4.74 (4.30-5.90) m/uL Hgb 15.0 (13.0-17.5) gm/dL Hct 45.6 (39.0-53.0) % MCV 96.2 (80.0-100.0) fL MCH 31.6 (25.0-35.0) pg MCHC 32.8 (31.0-37.0) g/dL RDW 13.3 (11.5-15.5) % Plt Count 440 (150-450) k/uL MPV 7.2 Neutrophils % 77 % Lymphocytes % 13 % Monocytes % 6 % Eosinophils % 1 % Basophils % 2 % Neutrophils # 10.8 H (1.3-7.7) k/uL Lymphocytes # 1.8 (1.0-4.8) k/uL Monocytes # 0.8 (0-1.0) k/uL Eosinophils # 0.2 (0-0.7) k/uL Basophils # 0.3 H (0-0.2) k/uL PT 9.6 (9.0-12.0) sec INR 0.9 (<1.2) APTT 23.1 (22.0-30.0) sec D-Dimer 2.92 H (<0.60) mg/L FEU Sodium 131 L (137-145) mmol/L Potassium 4.6 (3.5-5.1) mmol/L Chloride 92 L (98-107) mmol/L Carbon Dioxide 36 H (22-30) mmol/L Anion Gap 3 mmol/L BUN 28 H (9-20) mg/dL Creatinine 0.68 (0.66-1.25) mg/dL Est GFR (CKD-EPI)AfAm >90 (>60 ml/min/1.73 sqM) Est GFR (CKD-EPI)NonAf >90 (>60 ml/min/1.73 sqM) Glucose 88 (74-99) mg/dL Plasma Lactic Acid Suraj (0.7-2.0) mmol/L Calcium 9.2 (8.4-10.2) mg/dL Magnesium 2.1 (1.6-2.3) mg/dL Total Bilirubin 0.6 (0.2-1.3) mg/dL AST 28 (17-59) U/L ALT 21 (4-49) U/L Alkaline Phosphatase 74 (38-126) U/L Troponin I (0.000-0.034) ng/mL Total Protein 6.3 (6.3-8.2) g/dL Albumin 3.5 (3.5-5.0) g/dL Influenza Type A (PCR) (Not Detectd) Influenza Type B (PCR) (Not Detectd) RSV (PCR) (Not Detectd) SARS-CoV-2 (PCR) (Not Detectd) 03/03/20 03/03/20 03/03/20 Range/Units 15:06 15:06 15:06 WBC (3.8-10.6) k/uL RBC (4.30-5.90) m/uL Hgb (13.0-17.5) gm/dL Hct (39.0-53.0) % MCV (80.0-100.0) fL MCH (25.0-35.0) pg MCHC (31.0-37.0) g/dL RDW (11.5-15.5) % Plt Count (150-450) k/uL MPV Neutrophils % % Lymphocytes % % Monocytes % % Eosinophils % % Basophils % % Neutrophils # (1.3-7.7) k/uL Lymphocytes # (1.0-4.8) k/uL Monocytes # (0-1.0) k/uL Eosinophils # (0-0.7) k/uL Basophils # (0-0.2) k/uL PT (9.0-12.0) sec INR (<1.2) APTT (22.0-30.0) sec D-Dimer (<0.60) mg/L FEU Sodium (137-145) mmol/L Potassium (3.5-5.1) mmol/L Chloride (98-107) mmol/L Carbon Dioxide (22-30) mmol/L Anion Gap mmol/L BUN (9-20) mg/dL Creatinine (0.66-1.25) mg/dL Est GFR (CKD-EPI)AfAm (>60 ml/min/1.73 sqM) Est GFR (CKD-EPI)NonAf (>60 ml/min/1.73 sqM) Glucose (74-99) mg/dL Plasma Lactic Acid Suraj 1.3 (0.7-2.0) mmol/L Calcium (8.4-10.2) mg/dL Magnesium (1.6-2.3) mg/dL Total Bilirubin (0.2-1.3) mg/dL AST (17-59) U/L ALT (4-49) U/L Alkaline Phosphatase (38-126) U/L Troponin I <0.012 (0.000-0.034) ng/mL Total Protein (6.3-8.2) g/dL Albumin (3.5-5.0) g/dL Influenza Type A (PCR) Not Detected (Not Detectd) Influenza Type B (PCR) Not Detected (Not Detectd) RSV (PCR) Not Detected (Not Detectd) SARS-CoV-2 (PCR) Not Detected (Not Detectd) Disposition Clinical Impression: Shortness of breath Disposition: HOME SELF-CARE Condition: Stable Instructions (If sedation given, give patient instructions): COPD (Chronic Obstructive Pulmonary Disease) (DC) Is patient prescribed a controlled substance at d/c from ED?: No Referrals: Malcolm Hurst MD [Primary Care Provider] - 1-2 days Time of Disposition: 16:52
--- NOTE | 2020-03-03 15:04 | XR ---
EXAM: XR Chest, 2 Views CLINICAL HISTORY: ITS.REASON XR Reason: difficulty breathing TECHNIQUE: Frontal and lateral views of the chest. COMPARISON: Chest radiograph on 04/26/2019 FINDINGS: Hardware: None. Lungs/pleura: Hyperinflation of the lungs is suggestive of COPD. Small nodular densities at the lateral lung bases may represent nipple shadows versus atelectasis versus infectious/inflammatory process. No pleural effusion or pneumothorax. Heart/mediastinum: Normal. No cardiomegaly. Soft tissues: Unremarkable. Bones: Stable chronic compression deformities in the midthoracic spine. Exaggerated thoracic kyphosis. Upper abdomen: Normal. IMPRESSION: 1. Hyperinflation of the lungs is suggestive of COPD. 2. Small nodular densities at the lateral lung bases may represent nipple shadows versus atelectasis versus infectious/inflammatory process. No other focal consolidation.
[2020-03-03 15:19] LABS: Basophils # (A) 0.3 k/uL (0-0.2); Basophils % (A) 2 %; Eosinophils # (A) 0.2 k/uL (0-0.7); Eosinophils % (A) 1 %; HCT 45.6 % (39.0-53.0); Lymphocytes # (A) 1.8 k/uL (1.0-4.8); Lymphocytes % (A) 13 %; MCH 31.6 pg (25.0-35.0); MCHC 32.8 g/dL (31.0-37.0); MCV 96.2 fL (80.0-100.0); Mean Platelet Volume 7.2; Monocytes # (A) 0.8 k/uL (0-1.0); Monocytes % (A) 6 %; Neutrophils # (A) 10.8 k/uL (1.3-7.7); Neutrophils % (A) 77 %; Platelet Count 440 k/uL (150-450); RBC 4.74 m/uL (4.30-5.90); RDW 13.3 % (11.5-15.5)
[2020-03-03 15:29] LABS: ALT 21 U/L (4-49); AST 28 U/L (17-59); African American GFR (CKD) >90 (>60 ml/min/1.73 sqM); Albumin 3.5 g/dL (3.5-5.0); Alkaline Phosphatase 74 U/L (38-126); Anion Gap 3 mmol/L; Blood Urea Nitrogen 28 mg/dL (9-20); Calcium 9.2 mg/dL (8.4-10.2); Carbon Dioxide 36 mmol/L (22-30); Chloride 92 mmol/L (98-107); Glucose 88 mg/dL (74-99); Magnesium 2.1 mg/dL (1.6-2.3); Non-African American GFR(CKD) >90 (>60 ml/min/1.73 sqM); Potassium 4.6 mmol/L (3.5-5.1); Sodium 131 mmol/L (137-145); Total Bilirubin 0.6 mg/dL (0.2-1.3); Total Protein 6.3 g/dL (6.3-8.2)
[2020-03-03 15:37] LABS: INR 0.9 (<1.2); Partial Thromboplastin Time 23.1 sec (22.0-30.0); Prothrombin Time 9.6 sec (9.0-12.0)
[2020-03-03 15:56] LABS: D-Dimer 2.92 mg/L FEU (<0.60)
[2020-03-03 16:23] VITALS: BP 145/100; PULSE 92; RESP 16
== END 2020-03-03 17:08 | disposition home or self-care (01) ==
LOC: EC 13:59
DX: R06.02 Shortness of breath (principal); J43.9 Emphysema, unspecified; I27.82 Chronic pulmonary embolism; R91.8 Other nonspecific abnormal finding of lung field; D72.829 Elevated white blood cell count, unspecified; R79.89 Other specified abnormal findings of blood chemistry; E87.1 Hypo-osmolality and hyponatremia; F32.9 Major depressive disorder, single episode, unspecified; F17.210 Nicotine dependence, cigarettes, uncomplicated; Z20.828 Contact with and (suspected) exposure to other viral communicable diseases; Z79.01 Long term (current) use of anticoagulants; Z79.51 Long term (current) use of inhaled steroids; Z79.899 Other long term (current) drug therapy; Z99.81 Dependence on supplemental oxygen
CPT/HCPCS: 36415; 71046; 80053; 83605; 83735; 84484; 85025; 85379; 85610; 85730; 87040; 87636; 93005; 96360; 99284

== ENCOUNTER → 2020-03-28 | Outpatient (CLI) | payer OTHER ==
--- NOTE | 2020-03-28 17:33 | US ---
EXAMINATION TYPE: US scrotum with doppler. DATE OF EXAM: 03/28/2020 COMPARISON: NONE CLINICAL HISTORY: 64-year-old male N50.819 Testicular pain. Left scrotal enlargement. TECHNIQUE: Grayscale and color Doppler Duplex imaging performed of the scrotum. FINDINGS: EXAM MEASUREMENTS: TESTICLES: Homogeneous, symmetric appearance. Right Testicle: 4.7 x 1.9 x 2.9 cm Left Testicle: 4.7 x 2.0 x 2.8 cm EPIDIDYMIS HEAD: Right Epididymis: 1.3 x 0.9 x 0.9 cm with a 1.3 cm epididymal head cyst Left Epididymis: 3.4 x 2.9 x 3.6cm with a large 3.1 cm epididymal head cyst. Doppler performed to assess for testicular vascularity; good bilateral color flow and waveforms are s een. There is no evidence of testicular torsion. Presence of hydroceles: no Presence of varicoceles: no IMPRESSION: 1. No sonographic evidence for testicular torsion or epididymoorchitis. 2. Large 3.1 cm epididymal head cyst on the left and smaller 1.3 cm on the right.
== END | disposition home or self-care (01) ==
LOC: RADUSWWP 14:06
PROVIDERS: ATTEND Nurse Practitioner Gerontology
DX: N44.2 Benign cyst of testis (principal)
CPT/HCPCS: 76870; 93975

== ENCOUNTER → 2021-03-16 | Outpatient (CLI) | payer OTHER ==
[~2021-03-16] MED LIST: SODIUM CHLORIDE 0.9% 500 ML 500 ML in EMPTY BAG 1 BAG IV PRN; ZOLEDRONIC ACID 5 MG in SODIUM CHLORIDE 0.9% 100 ML IV NR
[2021-03-16 09:34] VITALS: BP 117/82; PULSE 101; RESP 16; TEMP 97.6
== END ==
LOC: PROCWHC3 09:23
PROVIDERS: ATTEND Internal Medicine
DX: M81.0 Age-related osteoporosis without current pathological fracture (principal); F17.200 Nicotine dependence, unspecified, uncomplicated
CPT/HCPCS: 96365; J3489

== ENCOUNTER → 2022-03-19 | Outpatient (CLI) | payer MEDICARE, OTHER ==
[2022-03-19 11:24] VITALS: BP 131/83; PULSE 98; RESP 20; TEMP 98
== END ==
LOC: PROCWHC3 11:01
PROVIDERS: ATTEND Internal Medicine
DX: M81.0 Age-related osteoporosis without current pathological fracture (principal); F17.200 Nicotine dependence, unspecified, uncomplicated
CPT/HCPCS: 96365; J3489